=== PATIENT | male | born 1990 | race Caucasian/White ===

== ENCOUNTER 2018-12-10 19:59 | Emergency (ER) | payer SELFPAY ==
[~2018-12-10] VITALS: Ht 170.2 cm; Wt 72.7 kg
[~2018-12-10 19:59] MED LIST: BACTRIM DS 8001 TAB PO; CEPHALEXIN500 M1 PO; FLEXERIL10 MG PO; LORTAB 5/500 501 TAB PO; NO HOME MEDICATIONS
[2018-12-10 20:08] VITALS: TEMP 99.1
[2018-12-10 23:26] VITALS: BP 137/87; PULSE 81
== END 2018-12-10 23:25 | disposition home or self-care (01) ==
LOC: COL.ER 19:59
DX: T18.9XXA Foreign body of alimentary tract, part unspecified, initial encounter (principal)